=== PATIENT | male | born 1940 | race Caucasian/White ===

== ENCOUNTER 2023-08-11 10:53 | Outpatient (RCR) | payer MEDICARE, OTHER, SELFPAY | END 2023-08-11 23:59 | disposition home or self-care (01) | LOC: RPT 10:53 | PROVIDERS: ATTENDING PHYSICIAN Physician Assistant Surgical; FAMILY PHYSICIAN Internal Medicine | DX: Z47.1 Aftercare following joint replacement surgery (principal); Z96.611 Presence of right artificial shoulder joint; Z73.6 Limitation of activities due to disability | CPT/HCPCS: 97010; 97110; 97140; 97162 ==

== ENCOUNTER 2023-09-11 11:01 | Outpatient (RCR) | payer MEDICARE, OTHER, SELFPAY | END 2023-09-11 23:59 | disposition home or self-care (01) | LOC: RPT 11:01 | PROVIDERS: ATTENDING PHYSICIAN Physician Assistant Surgical; FAMILY PHYSICIAN Internal Medicine | DX: Z47.1 Aftercare following joint replacement surgery (principal); Z96.611 Presence of right artificial shoulder joint; Z73.6 Limitation of activities due to disability | CPT/HCPCS: 97010; 97110; 97140 ==

== ENCOUNTER 2023-09-29 13:10 | Outpatient (RCR) | payer MEDICARE, OTHER, SELFPAY | END 2023-09-29 14:42 | disposition home or self-care (01) | LOC: RPT 13:10 | PROVIDERS: ATTENDING PHYSICIAN Physician Assistant Surgical; FAMILY PHYSICIAN Internal Medicine | DX: Z47.1 Aftercare following joint replacement surgery (principal); Z73.6 Limitation of activities due to disability; M25.511 Pain in right shoulder; Z96.611 Presence of right artificial shoulder joint | CPT/HCPCS: 97010; 97110; 97140 ==

== ENCOUNTER → 2023-11-26 12:40 | Outpatient (REF) | payer MEDICARE, OTHER, SELFPAY ==
[2023-11-26 14:02] LABS: ALT (SGPT) 18 U/L (0-50); AST (SGOT) 26 U/L (17-59); Albumin 4.1 g/dl (3.5-5.0); Alkaline Phosphatase 84 U/L (38-126); Blood Urea Nitrogen 18 mg/dl (9-20); Calcium 9.2 mg/dl (8.4-10.2); Carbon Dioxide 24 mmol/L (22-30); Chloride 105 mmol/L (98-107); Glucose 117 mg/dl (70-99); HDL Cholesterol 40 mg/dl; LDL Cholesterol, Calculated 78 mg/dl; Potassium 3.4 mmol/L (3.5-5.1); Sodium 140 mmol/L (135-145); Total Bilirubin 1.1 mg/dl (0.2-1.3); Total Cholesterol 134 mg/dl (50-199); Triglyceride 84 mg/dl (10-149); Very Low Density Lipoprotein 16 mg/dl (0-30); eGFR > 60.00
[2023-11-27 09:11] LABS: Glycohemoglobin (HgbA1c) 6.4 % (4.0-5.6)
== END ==
LOC: REG 12:40
PROVIDERS: ATTENDING PHYSICIAN Family Medicine; REFERRING PHYSICIAN Surgery Vascular Surgery
DX: E78.2 Mixed hyperlipidemia (principal); R73.01 Impaired fasting glucose
CPT/HCPCS: 36415; 80053; 80061; 83036

== ENCOUNTER → 2024-05-10 12:02 | Outpatient (REF) | payer MEDICARE, OTHER, SELFPAY ==
[2024-05-10 14:21] LABS: ALT (SGPT) 21 U/L (0-50); AST (SGOT) 26 U/L (17-59); Albumin 4.4 g/dl (3.5-5.0); Alkaline Phosphatase 72 U/L (38-126); Blood Urea Nitrogen 23 mg/dl (9-20); Calcium 9.1 mg/dl (8.4-10.2); Carbon Dioxide 27 mmol/L (22-30); Chloride 104 mmol/L (98-107); Glucose 113 mg/dl (70-99); HDL Cholesterol 47 mg/dl; LDL Cholesterol, Calculated 80 mg/dl; Potassium 4.1 mmol/L (3.5-5.1); Sodium 142 mmol/L (135-145); Total Bilirubin 1.1 mg/dl (0.2-1.3); Total Cholesterol 149 mg/dl (50-199); Total Protein 7.1 g/dl (6.3-8.2); Triglyceride 113 mg/dl (10-149); Very Low Density Lipoprotein 22 mg/dl (0-30); eGFR 59.26
== END ==
LOC: REG 12:02
PROVIDERS: ATTENDING PHYSICIAN Family Medicine; OTHER PHYSICIAN Internal Medicine Cardiovascular Disease; OTHER PHYSICIAN Surgery Vascular Surgery
DX: I10 Essential (primary) hypertension (principal); E78.2 Mixed hyperlipidemia
CPT/HCPCS: 36415; 80053; 80061

== ENCOUNTER → 2024-12-06 10:29 | Outpatient (REF) | payer MEDICARE, OTHER, SELFPAY ==
[2024-12-06 11:50] LABS: ALT (SGPT) 19 U/L (0-50); AST (SGOT) 23 U/L (17-59); Albumin 4.3 g/dl (3.5-5.0); Alkaline Phosphatase 74 U/L (38-126); Blood Urea Nitrogen 26 mg/dl (9-20); Carbon Dioxide 23 mmol/L (22-30); Chloride 110 mmol/L (98-107); Glucose 118 mg/dl (70-99); HDL Cholesterol 44 mg/dl; LDL Cholesterol, Calculated 75 mg/dl; Potassium 3.6 mmol/L (3.5-5.1); Sodium 143 mmol/L (135-145); Total Bilirubin 1.2 mg/dl (0.2-1.3); Total Cholesterol 135 mg/dl (50-199); Total Protein 7.1 g/dl (6.3-8.2); Triglyceride 82 mg/dl (10-149); Very Low Density Lipoprotein 16 mg/dl (0-30)
== END ==
LOC: REG 10:29
PROVIDERS: ATTENDING PHYSICIAN Internal Medicine Cardiovascular Disease; FAMILY PHYSICIAN Family Medicine; REFERRING PHYSICIAN Surgery Vascular Surgery
DX: E78.2 Mixed hyperlipidemia (principal)
CPT/HCPCS: 36415; 80053; 80061

== ENCOUNTER 2025-03-05 12:38 | Emergency (ER) | payer MEDICARE, OTHER, SELFPAY ==
[2025-03-05 12:41] VITALS: BP 152/81; BMI 27.1
[2025-03-05 13:00] VITALS: BP 115/81
[2025-03-05 13:34] VITALS: BP 115/81
[2025-03-05] MEDS: NSS 500 IV (13:36)
[2025-03-05 13:43] LABS: Hematocrit 38.2 % (39.0-52.0); Hemoglobin 13.2 g/dL (13.0-18.0); Mean Corp Hgb Conc. 34.6 g/dL (33.0-37.0); Mean Corpuscular Volume 84.5 fL (80.0-94.0); Nucleated Red Blood Cells % 0 % (-); Platelet Count 166 10^3/uL (130-400); Red Cell Dist. Width 13.4 % (11.5-14.5)
--- NOTE | 2025-03-05 13:56 | ED.GENMED ---
History of Present Illness
General
Chief Complaint: Musculo-Skeletal Complaint
Source: patient and spouse
Exam Limitations: none
Time Seen by Provider: 03/05/25 12:42
History of Present Illness
History of Present Illness:
84-year-old male with nontraumatic left hip pain starting yesterday. Progressive in nature. Currently unable to bear weight secondary to pain. No fever chills or other joint issues. No history of same.
Past History
Past History
ED Past Medical History: Arrthythmia and HTN
ED Past Surgical History: Orthopedic and Other (AAA repair)
Social History
Tobacco: Former smoker
Personal:
Living: with family
Phy Exam
Physical Exam
Physical Exam:
GENERAL: Alert and oriented in no apparent distress
EYE: Orbits normal.
NECK: Supple, no significant adenopathy.
ENT: Pharynx without erythema
CARDIAC: Regular rate and rhythm without any obvious murmurs.
LUNGS: Clear breath sounds,normal
ABDOMEN: Soft, without focal tenderness or distention
NEUROLOGICAL: Alert and oriented , grossly non-focal
SKIN: Warm and dry, no rash or lesion, no discoloration, skin intact.
MUSCULOSKELETAL: Tenderness and some swelling near the greater trochanter on the left. No warmth or erythema. No fluctuance. No pain with hip rotation. Some pain with flexion of the hip. All other extremities negative or
PSYCH: Normal and appropriate interaction.
Course
Orders/Labs/Results
Orders:
Orders
03/05/25 12:58
IV Insert/Care/Rem.- Treatment PRN
0.9% Sodium Chloride 500 ml [Nss] 500 ml IV BOLUS
03/05/25 12:59
CT Lower Ext W/o Iv Cont Lt Urgent
Comment:
Reason For Exam: Left hip pain/swelling
03/05/25 13:09
Basic Metabolic Panel Urgent
CRP [C-Reactive Protein] Urgent
Complete Blood Count/With Diff Urgent
Abnormal Lab Results
03/05/25
13:09
RBC 4.52 L 10^6/uL
(4.70-6.10)
Hct 38.2 L %
(39.0-52.0)
MPV 10.8 H fL
(7.4-10.4)
Absolute Monos (auto) 0.7 H 10^3/uL
(0.1-0.6)
Lymphocytes % 20.2 L %
(20.5-51.1)
Chloride 109 H mmol/L
(98-107)
Carbon Dioxide 21 L mmol/L
(22-30)
BUN 34 H mg/dl
(9-20)
Glucose 110 H mg/dl
(70-99)
03/05/25 13:09
03/05/25 13:09
Vital Signs
Initial and Last Documented VS:
Initial Vital Signs
Temp Pulse Resp BP Pulse Ox
97.7 F 84 16 152/81 98
03/05/25 12:41 03/05/25 12:41 03/05/25 12:41 03/05/25 12:41 03/05/25 12:41
Last Documented Vital Signs
Temp Pulse Resp BP Pulse Ox
97.7 F 100 16 150/90 98
03/05/25 12:41 03/05/25 16:37 03/05/25 16:37 03/05/25 16:37 03/05/25 16:37
MDM/Problems Addressed
Differential Diagnosis Includes:
Patient with some swelling and tenderness over the greater trochanter. No warmth or erythema. Doubt infectious issue. Doubt issue within the joint. Workup in progress
*Radiology
Radiology exam reviewed: radiology read reviewed (Hematoma left gluteus minimus medius. 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
*Pulse Oximetry
SaO2: 98
Oxygen Mode of Delivery: Room air
Patient hypoxic: no
*Critical Care Note
Total Time (30-74mins, 75-104mins- exclusive of procedures): Not Applicable
Data Reviewed
Review of Other/Old Records Reveals: Labs, Records and Testing
Update Note
Update Note:
Reviewed with radiology. 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 Does not describe his acute symptoms. Patient is improved and is able to ambulate. He feels comfortable discharge to follow-up will hold Eliquis for 2 days. He is on it for
preventative A-fib reasons
ED Attending Note
-
Portions of this chart may have been created with voice recognition software.� Occasional wrong word or��sound alike� substitutions may have occurred due to the inherent limitations of voice recognition software.
Discharge Plan
Departure
Patient Disposition: Home (Routine Discharge)
Date of Disposition: 03/05/25
Time of Disposition: 16:15
Patient with high blood pressure during this ER visit?: No
Discharge Problem:
Left gluteus minimus/medius hematoma, Myotendinous injury, Stable AAA
Instructions: Muscle and Bone Pain (DC), BLOOD PRESSURE, Hematoma
Prescriptions:
New
hydrocodone-acetaminophen 5-325 mg tablet
1 tab PO Q6H PRN (Reason: Pain) Qty: 10 0RF
No Action
Eliquis 5 mg Tablet
5 mg PO BID
oxycodone 5 mg tablet
5 - 10 mg PO Q6H PRN (Reason: moderate-severe pain) Qty: 30 0RF
Rx Instructions:
1 tab for moderate pain, 2 if severe.
Dx total joint.
dexamethasone 4 mg tablet
4 mg PO BID Qty: 7 0RF
Rx Instructions:
Start night of discharge and take a day for 3 days post-surgery.
Take with food.
ondansetron HCl 4 mg tablet
4 mg PO Q6H PRN (Reason: nausea and vomiting) Qty: 30 0RF
mupirocin 2 % ointment
1 applic intranasal BID Qty: 1 0RF
Patient Comments:
started 4 days ago
atorvastatin 40 mg Tablet
40 mg PO DAILY
Eliquis 2.5 mg tablet
2.5 mg PO BID Qty: 5 0RF
Rx Instructions:
Cut 5 mg tab in 06/16 (= 2.5 mg) and take twice a day from 06/26 PM to 06/28 PM.
Can resume 5 mg twice a day on 06/29 AM.
docusate sodium [Colace] 100 mg capsule
100 mg PO BID Qty: 30 0RF
sennosides [senna] 8.6 mg tablet
17.2 mg PO BID Qty: 30 0RF
acetaminophen 325 MG tablet
650 mg PO Q4HWA Qty: 60 0RF
Rx Instructions:
DO NOT exceed >4000 mg daily.
calcium carbonate [Tums] 300 mg (750 mg) Tablet,Chewable
300 mg PO DAILY PRN (Reason: reflux) Qty: 0 0RF
amlodipine 10 mg Tablet
10 mg PO HS Qty: 0 0RF
Rx Instructions:
HOLD IF systolic blood pressure <130 while on Oxycodone
Referrals:
Dani Alejandre MD [Family Provider, Family Practice] - Follow up in 2-3 days
Activity Restrictions/Additional Instructions:
Tylenol for pain
Hold the Eliquis for 2 days
Only use the stronger pain medication if needed
Return with increasing pain leg swelling inability to ambulate or handle issues at home or if not improving in the next 2 to 3 days
A prescription for stronger pain medicine was sent to your pharmacy if needed. Understand it is a narcotic and can make you drowsy lightheaded and constipated
Interventions
Interventions:
*Risk Screen - Suicide Last Done: 03/05/25 12:44
*General Assessment Last Done: 03/05/25 12:46
*Neglect/Abuse Screening Last Done: 03/05/25 12:44
*ED- Fall Risk Assessment Last Done: 03/05/25 12:44
*ED COVID-19 Vaccine History Last Done: 03/05/25 12:44
*Nursing Disposition Last Done: 03/05/25 16:37
ED-Musculoskeletal Assessment Last Done: 03/05/25 12:48
Discharge Date and Time
Discharge Date/Time: 03/05/25 16:37
Print Language: BARBADIAN
[2025-03-05 14:17] LABS: Blood Urea Nitrogen 34 mg/dl (9-20); Calcium 8.8 mg/dl (8.4-10.2); Carbon Dioxide 21 mmol/L (22-30); Chloride 109 mmol/L (98-107); Estimated Creatinine Clearance 43 ml/min; Glucose 110 mg/dl (70-99); Sodium 137 mmol/L (135-145); eGFR 58.89
[2025-03-05 14:37] LABS: C-Reactive Protein < 5.00 mg/L (0.0-10.00)
[2025-03-05 16:37] VITALS: BP 150/90
== END 2025-03-05 16:37 | disposition home or self-care (01) ==
LOC: EMR 12:38
PROVIDERS: EMERGENCY PHYSICIAN Emergency Medicine; FAMILY PHYSICIAN Family Medicine
DX: M79.81 Nontraumatic hematoma of soft tissue (principal); I71.43 Infrarenal abdominal aortic aneurysm, without rupture; I48.91 Unspecified atrial fibrillation; I10 Essential (primary) hypertension; Z79.01 Long term (current) use of anticoagulants; Z87.891 Personal history of nicotine dependence
CPT/HCPCS: 99284; 73700; 80048; 85025; 86140